=== PATIENT | male | born 1945 | race Hispanic/Latino ===

== ENCOUNTER 2016-12-15 08:40 | Emergency (ER) | payer MEDICARE, MEDICAID ==
[~2016-12-15] VITALS: Ht 167.6 cm; Wt 66.4 kg
[~2016-12-15 08:40] MED LIST: ALBU18HF INH; ALBU2.5V4 INHALATION; ALEN70TA2 PO; BUDE10.2 IH; CHOL100045 PO; CLOP75TA3 PO; FLUT15.88 NS; HYD500 PO; IBUP800T28 PO; LORA10CA PO; MONT10TA23 PO; RANI300T4 PO; UMEC62.5 IH
[2016-12-15 08:45] VITALS: BP 86/45; PULSE 109; RESP 25; O2SAT 96
[2016-12-15 08:56] VITALS: BP 101/53; PULSE 93; RESP 12; O2SAT 95
--- NOTE | 2016-12-15 08:59 | ED.REPORT ---
HPI-Abd Pain M 40 and Over Date of Service Dec 15, 2016 ED Provider: Nima Tovar MD Pt is a 71 y/o male w/ a hx of essential congenital thrombocytopenia, emphysema , presenting to the ED c/o water diarrhea onset this morning. He has been experiencing upper back pain for 3 days which developed into a subjective fever last night and watery diarrhea this morning. He believes something he ate yesterday is causing his symptoms. He took Ranitidine and Ibuprofen this morning which provided mild relief. Pt denies nausea, vomiting, bloody stool, abdominal pain, dysuria, urinary frequency. He does not take medicine for blood pressure. Nursing Notes Stated Complaint: ASTHMA Chief Complaint: Male Abdominal Pain Nursing Notes Reviewed: Yes Allergies: Coded Allergies: Penicillins (Verified Allergy, Intermediate, HIVES, OK W/ AZTREONAM, ) 09/03/15: "I had shots when I was younger, I don't remember what the reaction was." Scheduled Alendronate Sodium (Fosamax) 70 Mg Tablet 70 MG PO QWEEKLY THURSDAY Budesonide/Formoterol 80-4.5 mcg Inh (Symbicort 80-4.5 mcg Inh) 120 Puff/10.2 Gm Inhaler 2 PUFF IH BID Cholecalciferol (Vitamin D3) (Vitamin D) 1,000 Unit Capsule 2,000 UNIT PO DAILY Clopidogrel Bisulfate (Plavix) 75 Mg Tablet 75 MG PO DAILY Fluticasone Propionate (Fluticasone Propionate) 50 Mcg/Actuation [place].susp 1 SPRAY NS DAILY Hydroxyurea (Hydrea) 500 Mg Capsule 500 MG PO BID SunMonWedFri Montelukast (Montelukast) 10 Mg Tablet 10 MG PO HS Ranitidine (Ranitidine) 300 Mg Tablet 300 MG PO DAILY Umeclidinium [place] (Incruse Ellipta) 62.5 Mcg/Actuation Blst.w.dev 1 PUFF IH DAILY Scheduled PRN Albuterol Neb Soln (Albuterol Neb Soln) 2.5 Mg/3 Ml Vial.neb 2.5 MG INHALATION Q4H PRN PRN For Shortness of Breath Albuterol Sulfate (Ventolin HFA Inhaler) 200 Puff/18 Gm Inhaler 2 PUFF INH Q4 PRN PRN For Wheezing Ibuprofen (Ibuprofen) 800 Mg Tablet 800 MG PO TID PRN PRN For Pain Loratadine (Claritin) 10 Mg Capsule 10 MG PO DAILY PRN PRN For Congestion Ondansetron ODT (Zofran ODT) 4 Mg Tablet 4 MG PO Q4H PRN PRN For Nausea General Time Seen by MD: 08:58 Chief Complaint Diarrhea moderate Hx Obtained From: Patient Arrived By: Walk-in Sudden in Onset?: No Onset Occurred: 1 - 4 hours ago Symptom Duration: Since onset Progression since Onset: Constant Location: : Back Quality: Painful Severity: Current: Moderate Severity: Maximum: Moderate Past Medical History Past Medical History 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 Emphysema Asthma Chronic Hypercapnic Resp failure requiring 2L of Oxygen as needed TIA Past Surgical History Bilateral Dupuytren's contracture surgery Reports: Cataract surgery Smoking History Former Smoker Social History Alcohol Use: Denies alcohol use Drug Use: Denies drug use Ambulatory Status Independent Review of Systems Constitutional: Reports: Fever GI: Reports: Diarrhea, Denies: Abdominal pain, Bloody/tarry stool, Nausea, Vomiting Male: Denies Dysuria, Denies Urinary frequency Musculoskeletal: Reports: Thoracic pain Complete sys rev & neg: except as marked. Physical Exam Initial Vital Signs Vital Signs (First) Date Time Temp Pulse Resp B/P Pulse Ox O2 Delivery O2 Flow Rate FiO2 12/15/16 08:45 37 109 25 86/45 96 Nasal Cannula 2 Initial VS: Reviewed, Vital signs abnormal Head / Eyes: Atraumatic, Normocephalic ENT: Mucous membranes moist, Conjunctiva normal, No scleral icterus Neck: Supple, Full range of motion Extremities: Vascular intact, Neuro intact, No swelling Skin: Warm, Dry, No cyanosis Neurologic: Alert, Oriented, Nonfocal Psychiatric: Mood/affect normal, Behavior normal, Normal thought content General/Constitutional: Awake, Alert, No acute distress, Cooperative, Not toxic appearing Respiratory / Chest: Breath sounds NL, Breath sounds = bilat, No respiratory distress, No rales, No rhonchi, No wheezing Cardiovascular: Heart rate NL, Regular rhythm, Heart sounds NL, No murmurs, Peripheral circulation NL, Pulses = bilaterally Abdomen: Atraumatic, Soft, No rebound, No distention, No palpable mass, No pulsatile mass Mild mid-periumbilical tenderness with mild guarding Back: Full range of motion, Painless range of motion Right upper back tenderness to palpation Interpretation & Diagnostics Interpretation & Diagnostics: CT chest/abd/pelvis w/ contrast: IMPRESSION: 1. Transverse colon with circumferential wall thickening suspicious for nonspecific colitis. 2. Colonic diverticulosis without evidence of diverticulitis. 3. No free fluid or air. 4. No evidence of aortic aneurysm or aortic dissection. 5. Bilateral lung emphysematous disease. Dictated by: Lexi Mendoza MD, PhD on 12/15/2016 at 11:05 Approved by: Lexi Mendoza MD, PhD on 12/15/2016 at 11:18 Lab Results Interpretation Result Diagram: 12/15/16 0916 12/15/16 0955 Test 12/15/16 09:16 12/15/16 09:55 White Blood Count 9.7th/mm3 (3.8-10.1) Red Blood Count 3.11mil/mm3 (4.40-5.80) Hemoglobin 12.7g/dL (13.8-17.2) Hematocrit 35.1% (41.0-50.0) Mean Corpuscular Volume 112.9fL (81-100) Mean Corpuscular Hemoglobin 40.8pg (27.0-35.0) Mean Corpuscular Hemoglobin Concent 36.2% (32.0-37.0) Red Cell Distribution Width 10.6% (12.3-15.4) Platelet Count 345bil/L (150-400) Neutrophils (%) (Auto) 81.2% (40-74) Lymphocytes (%) (Auto) 6.0% (14-46) Monocytes (%) (Auto) 12.2% (4-12) Eosinophils (%) (Auto) 0.1% (0-5) Basophils (%) (Auto) 0.1% (0-3) Lactic Acid Level 0.8mmol/L (0.4-2.0) Sodium Level 139mEq/L (134-144) Potassium Level 4.1mEq/L (3.5-5.2) Chloride Level 102mEq/L (97-108) Carbon Dioxide Level 23mmol/L (18-29) Blood Urea Nitrogen 14mg/dL (8-27) Creatinine 0.94mg/dL (0.76-1.27) Estimat Glomerular Filtration Rate 84mL/min (>59) Glucose Level 89mg/dL (60-99) Calcium Level 8.0mg/dL (8.5-10.1) Magnesium Level 1.6mg/dL (1.6-2.6) Total Bilirubin 0.7mg/dL (0.0-1.2) Aspartate Amino Transf (AST/SGOT) 17U/L (0-50) Alanine Aminotransferase (ALT/SGPT) 12U/L (0-44) Alkaline Phosphatase 40U/L (25-160) Total Protein 5.2g/dL (6.4-8.4) Albumin 3.5g/dL (3.4-5.0) Lipase 39U/L (13-60) Re-Eval/Medical Decision Med Decision/Clinical Course Brief initial hypotensive event in the setting of abdominal and back pain; want to exclude AAA therefore CT chest/abd/pelvis is ordered. Time of Eval: 11:55 Patient Status: Condition improved Re-Evaluation/Progress Note: CT shows transverse colitis. This is nonspecific finding. No evidence of dissection or aneurysm. Laboratory data is relatively reassuring as well. I believe outpatient follow-up with symptomatically therapy is appropriate. Patient understands these instructions and will follow-up or Thursday if not improved. Counseled Regarding: Diagnosis, Lab results, Need for follow-up, When/why to return to ED Discharge & Departure Primary Impression: Nonspecific colitis Disposition: Home Vital Signs - All Vital Signs Date Time Temp Pulse Resp B/P Pulse Ox O2 Delivery O2 Flow Rate FiO2 12/15/16 12:06 36.4 87 20 111/53 98 Room Air 12/15/16 10:47 90 16 119/96 100 12/15/16 08:56 93 12 101/53 95 Room Air 12/15/16 08:45 37 109 25 86/45 96 Nasal Cannula 2 )( All Prior VS Reviewed: Yes Condition: Stable Patient Instructions: Colitis (ED) Additional Instructions: You have inflammation in the intestine. This is probably from something you ate or a mild viral infection. This should resolve on its own over the next few days. Use Imodium as directed on the box to help with diarrhea if needed. Use ondansetron as needed for nausea. Follow-up in the clinic or Thursday if not improving. Google Translate: Tiene inflamacin en el intestino. [place] es probablemente de algo que usted comi o de gisela infeccin viral suave. [place] debera resolver por s mismo en los pr ximos meier. Use Imodium mak se indica en la caja para ayudar con la diarrea si es necesario. Use ondansetron segn sea necesario para las nuseas. Seguimiento en la clnica el jueves o el viernes si no mejora. Referrals: Rosalio Andrade MD (PCP) Scribe Attestation Portions of this note were transcribed by Yusuf Melchor. I, Dr. Tovar personally performed the history, physical exam and medical decision-making; I reviewed and confirmed the accuracy of the information in the transcribed note. copies to: Rosalio Andrade MD, Kirk H MD Dec 15, 2016 08:59 YUSUF MELCHOR Dec 15, 2016 09:07
[2016-12-15] MEDS ORDERED: 0.9% Sodium Chloride 1,000 ML IV ONE (09:24)
[2016-12-15] MEDS ORDERED: Ondansetron 2 mg/mL 2 mL Inj IVPUSH PRN (09:25)
[2016-12-15] MEDS ORDERED: Pantoprazole 4 mg/mL 10 mL Inj IVPUSH ONE (09:25)
[2016-12-15 09:36] LABS: BASOPHILS % (AUTO) 0.1 % (0-3); EOSINOPHILS % (AUTO) 0.1 % (0-5); MONOCYTES % (AUTO) 12.2 % (4-12); Mean Corpuscular Hemoglobin 40.8 pg (27.0-35.0); Mean Corpuscular Volume 112.9 fL (81-100); NEUTROPHILS % (AUTO) 81.2 % (40-74); Platelet Count 345 bil/L (150-400)
[2016-12-15 10:37] LABS: Magnesium 1.6 mg/dL (1.6-2.6)
[2016-12-15 10:47] VITALS: BP 119/96; PULSE 90; RESP 16; O2SAT 100
--- NOTE | 2016-12-15 11:20 | DRSVH ---
PROCEDURE: CT CHEST, ABDOMEN AND PELVIS WITH CONTRAST ([id number]) INDICATIONS: abd pain/chest pain TECHNIQUE: After the administration of intravenous contrast, 5 mm thick sections acquired from the lung apices t o the symphysis. 5 mm thick coronal and sagittal reformats were acquired. Additional 7 mm thick cor onal maximum intensity projection (MIP) reformats acquired through the lungs. Optional 10-minute del ayed imaging may be performed from the kidneys to the bladder. For radiation dose reduction, the fol lowing was used: automated exposure control, adjustment of mA and/or kV according to patient size. COMPARISON: None. FINDINGS: Image quality: Excellent. CHEST: Lungs: No pulmonary contusions or lacerations. Emphysematous disease with apical predominance noted . No acute airspace opacities. No pneumothorax or hemothorax. Central and peripheral airways appear patent and normal in caliber. Mediastinum: No mediastinal hematomas. Heart size is normal. Atherosclerotic calcifications are not ed in the aorta, great vessels and the coronary vasculature. No pericardial effusion. Thoracic aorta and pulmonary arteries demonstrate normal size and enhancement. No mediastinal or hilar adenopathy. Esophagus is normal in caliber. No hiatal hernia. Chest wall: No rib fractures. No subcutaneous emphysema. No axillary or supraclavicular adenopathy . Thyroid gland is within normal limits. ABDOMEN: Solid organs: Liver and spleen are normal in size and enhancement, without lacerations. Gallbladder is within normal limits. Biliary system is non-dilated. Pancreas enhances normally, without transe ction. No adrenal hematomas. Both kidneys enhance normally, without hydronephrosis or lacerations. Small bilateral renal cysts noted. Peritoneum and bowel: No free fluid or air. Circumferential wall thickening in the transverse colon suspicious for nonspecific colitis. Scattered colonic diverticuli without evidence of diverticulosis. Nodes and vessels: No retroperitoneal or mesenteric adenopathy. Calcified subcarinal mediastinal lym ph nodes are noted compatible sequela prior granulomatous disease. Aorta and inferior vena cava are normal in size and enhancement. Scattered atherosclerotic calcifications involving the abdominal and pelvic vasculature. Miscellaneous: Small fat containing umbilical hernia noted. PELVIS: Genitourinary: Bladder wall thickness is normal. Miscellaneous: No adenopathy. Bilateral fat containing inguinal hernias. Bones: Pelvic ring and hip joints appear intact. Chronic appearing T7, T8, T9 and T10 compression fr actures noted. Spine degenerative disc disease and facet arthropathy. IMPRESSION: 1. Transverse colon with circumferential wall thickening suspicious for nonspecific colitis. 2. Colonic diverticulosis without evidence of diverticulitis. 3. No free fluid or air. 4. No evidence of aortic aneurysm or aortic dissection. 5. Bilateral lung emphysematous disease. Dictated by: Lexi Mendoza MD, PhD on 12/15/2016 at 11:05 Approved by: Lexi Mendoza MD, PhD on 12/15/2016 at 11:18
[2016-12-15] MEDS ORDERED: ONDA4TAB9 PO (11:58)
[2016-12-15 12:06] VITALS: BP 111/53; PULSE 87; RESP 20; O2SAT 98
== END 2016-12-15 12:07 | disposition home or self-care (01) ==
LOC: SED 08:40
DX: K52.9 Noninfective gastroenteritis and colitis, unspecified (principal); Z87.891 Personal history of nicotine dependence; Z86.73 Personal history of transient ischemic attack (TIA), and cerebral infarction without residual deficits; Z88.0 Allergy status to penicillin
CPT/HCPCS: 36415; 71260; 74177; 80053; 83605; 83690; 83735; 85025; 96361; 96374; 99285; J7030; Q9967; S0164